=== PATIENT | male | born 1960 | race Caucasian/White ===

== ENCOUNTER → 2016-04-02 | Outpatient (CLI) | payer OTHER ==
[~2016-04-02] MED LIST: AMLO10TA2 PO; ASPI81TA28 PO; HYDR25TA4 PO; LISI-461 PO; OFLO0.3S PO
[2016-04-02 12:04] LABS: BLOOD UREA NITROGEN 13 mg/dl (7-18); BUN/CREATININE RATIO 15.4 (10-20); CALCIUM 9.7 mg/dl (8.5-10.1); CARBON DIOXIDE 29 mmol/L (21-32); CHLORIDE 96 mmol/L (98-107); CHOLESTEROL 160 mg/dl (0-200); CHOLESTEROL/HDL RATIO 3.7; CREATININE 0.84 mg/dl (0.60-1.40); GLUCOSE 80 mg/dl (70-99); HDL CHOLESTEROL 43 mg/dl; LDL CHOLESTEROL CALCULATED 97 mg/dl; POTASSIUM 4.2 mmol/L (3.5-5.1); SODIUM 134 mmol/L (136-145); TRIGLYCERIDES 98 mg/dl (0-150); VERY LOW DENSITY LIPOPROT CALC 20 mg/dl
[2016-04-03 10:34] LABS: C-REACTIVE PROT HIGHSEN 6.9 MG/L
== END | disposition home or self-care (01) ==
LOC: C.LAB 10:08
DX: E78.5 Hyperlipidemia, unspecified (principal); R97.20 Elevated prostate specific antigen [PSA]

== ENCOUNTER → 2016-10-21 | Outpatient (CLI) | payer OTHER ==
[~2016-10-21] MED LIST changes: +GLUC10007 PO; +LISI40TA PO; +MULT-506 PO; +SPIR25TA PO
[2016-10-21 15:32] LABS: BLOOD UREA NITROGEN 14 mg/dl (7-18); BUN/CREATININE RATIO 17.2 (10-20); CALCIUM 9.7 mg/dl (8.5-10.1); CARBON DIOXIDE 29 mmol/L (21-32); CHLORIDE 99 mmol/L (98-107); CREATININE 0.79 mg/dl (0.60-1.40); GLUCOSE 69 mg/dl (70-99); POTASSIUM 3.9 mmol/L (3.5-5.1); SODIUM 134 mmol/L (136-145)
[2016-10-21 15:35] LABS: CHOLESTEROL 179 mg/dl (0-200); CHOLESTEROL/HDL RATIO 4.4; HDL CHOLESTEROL 41 mg/dl; LDL CHOLESTEROL CALCULATED 110 mg/dl; TRIGLYCERIDES 139 mg/dl (0-150); VERY LOW DENSITY LIPOPROT CALC 28 mg/dl
[2016-10-23 10:21] LABS: C-REACTIVE PROT HIGHSEN 16.4 MG/L
== END | disposition home or self-care (01) ==
LOC: C.LAB 13:49
DX: E78.5 Hyperlipidemia, unspecified (principal); I10 Essential (primary) hypertension

== ENCOUNTER → 2016-11-24 | Outpatient (CLI) | payer OTHER ==
[~2016-11-24] MED LIST changes: -AMLO10TA2 PO; +GADAVIST IV PRN; -LISI-461 PO; -OFLO0.3S PO
--- NOTE | 2016-11-24 23:59 | DIAGNOSTIC IMAGING REPORT ---
PELVIC COMBO HISTORY: 56 years-old Male C61 recent diagnosis of prostate cancer. Patient presents with right-sided pelvic pain for a couple of years. No known injury. Bone scan and CT abdomen and pelvis were obtained at outside institution. Focal area of radiotracer uptake within the right sacroiliac region was described as suspicious. Sclerotic lesions of the ileum and sacrum on the right or noted on comparison CT. COMPARISON: CT abdomen and pelvis 11/07/2016, bone scan 11/04/2016 TECHNIQUE: Multiplanar multisequence MRI of the pelvis was obtained both with and without the use of 8.5 mL Gadavist. FINDINGS: Large [id number] branch library clerk localizer images demonstrate no acute abnormality within the abdomen, pelvis or paraspinal tissues. There is a peripherally sclerotic 9 x 10 x 10 mm ovoid circumscribed lesion of the posterior right acetabulum with extensive surrounding enhancing bone marrow edema extending into the right ischium as seen on image 38 of series 5, image 23 of series 10. This correlates with a peripherally sclerotic lucent lesion within this distribution seen on CT study 11/07/2016. No pathologic fracture is identified. Mild degenerative changes involve the bilateral femoral acetabular joints. Subcortical cystic changes are seen within the anterior aspect of the right femoral head neck junction. No large joint effusion or definite labral tear identified. Mild edema is noted about the bilateral greater trochanter gluteal tendon insertion sites suggesting enthesitis without evidence to suggest focal bursitis. No intramuscular edema. The previously questioned suspicious lesions adjacent to the right sacroiliac joint are not appreciated, favoring degenerative changes. No focal bone marrow edema or enhancement is seen within this distribution. 1.8 cm bone island of the left mid sacrum is present. No acute intrapelvic or soft tissue abnormality identified. The prostate appears heterogeneous. IMPRESSION: 1. Peripherally sclerotic 9 x 10 x 10 mm ovoid circumscribed lesion of the posterior right acetabulum with extensive surrounding enhancing bone marrow edema extending into the right ischium is noted as above correlating with a peripherally sclerotic lucent lesion on comparison CT study 11/07/2016. This is nonspecific and warrants a follow-up study in 3 months to exclude progressive abnormality. 2. No additional suspicious lesions are identified within the pelvis. The previously described sclerotic foci adjacent to the right sacroiliac joint are favored to reflect degenerative changes without focal bone marrow edema or abnormal enhancement seen within this distribution. 3. 1.8 cm bone island of the left mid sacrum. The above report was generated using voice recognition software. It may contain grammatical, syntax or spelling errors. Electronically signed by: Alexis Schaffer M.D. 11/24/2016 11:58 PM Dictated Date/Time: 11/24/2016 11:40 PM
== END | disposition home or self-care (01) ==
LOC: C.MRI 19:40
PROVIDERS: ATTEND Urology
DX: C61 Malignant neoplasm of prostate (principal)

== ENCOUNTER → 2016-12-25 | Outpatient (CLI) | payer BC, OTHER ==
[2013-09-20 04:17] VITALS: BMI 25.0
[~2016-12-25] MED LIST changes: -GADAVIST IV PRN; +TRAMTAB5 PO
[2016-12-25 15:17] VITALS: BMI 27.0
--- NOTE | 2016-12-25 15:48 | PAT Medication Instructions ---
Service Date Dec 25, 2016. Current Home Medication List Aspirin (Aspirin Ec), 81 MG PO QAM Glucosamine Sulfate (Glucosamine), 2,000 MG PO QAM Hydrochlorothiazide (Hctz), 25 MG PO QAM Lisinopril (Zestril), 40 MG PO QPM Multivitamin (Multivitamin), 1 TAB PO QPM Spironolactone (Aldactone), 25 MG PO BID Medication Instructions For Your Scheduled Surgery - Hold the following medications 2 weeks prior to surgery: Glucosamine Sulfate (Glucosamine), 2,000 MG PO QAM - Hold the following medications 10 days prior to surgery: Aspirin (Aspirin Ec), 81 MG PO QAM - Take the following medications as scheduled the night before surgery: Spironolactone (Aldactone), 25 MG PO BID Multivitamin (Multivitamin), 1 TAB PO QPM - Do Not take the following medications the night before surgery: Lisinopril (Zestril), 40 MG PO QPM - Hold the following medications the morning of surgery: Hydrochlorothiazide (Hctz), 25 MG PO QAM Spironolactone (Aldactone), 25 MG PO BID If you have any questions please call us at [phone] or [phone] or [phone]
[2016-12-25 16:24] LABS: BASO % 0.2 %; BASO ABS # 0.02 K/uL (0-0.2); COMPLETE YES; EOS % 1.6 %; HEMATOCRIT 42.7 % (42-52); IG% 0.3 %; LYMPH % 18.4 %; LYMPH ABS # 1.91 K/uL (1.2-3.4); MEAN CELL VOLUME 85.4 fL (80-100); MEAN PLATELET VOLUME 9.8 fL (7.4-10.4); MONO % 8.6 %; NEUT % 70.9 %; PLATELET COUNT 323 K/uL (130-400)
[2016-12-25 16:27] LABS: URINE APPEARANCE CLEAR (CLEAR); URINE BILIRUBIN NEG (NEG); URINE COLOR YELLOW; URINE NITRITE NEG (NEG); URINE SPECIFIC GRAVITY 1.026 (1.000-1.030); UROBILINOGEN NEG (NEG)
[2016-12-25 16:31] LABS: BUN/CREATININE RATIO 25.4 (10-20); CALCIUM 8.9 mg/dl (8.5-10.1); CREATININE 0.84 mg/dl (0.60-1.40); POTASSIUM 3.8 mmol/L (3.5-5.1)
[2016-12-25 16:33] LABS: MANUAL MICROSCOPIC REQUIRED? NO; REVIEW REQ? NO
--- NOTE | 2016-12-25 16:36 | DIAGNOSTIC IMAGING REPORT ---
CHEST PREADMISSION(PA/LAT) HISTORY: Preop. COMPARISON: None. FINDINGS: The lungs are clear. Cardiac silhouette is normal in size. No pleural effusions. No pneumothorax. IMPRESSION: No acute process. Electronically signed by: Joe Coleman M.D. 12/25/2016 4:34 PM Dictated Date/Time: 12/25/2016 4:33 PM
== END | disposition home or self-care (01) ==
LOC: C.LAB 08:00 → EDSTATUS 01-15 08:27
PROVIDERS: ATTEND Urology
DX: Z01.812 Encounter for preprocedural laboratory examination (principal); Z01.810 Encounter for preprocedural cardiovascular examination

== ENCOUNTER 2017-01-26 05:40 | Day surgery (SDC) | payer BC, OTHER ==
[2016-12-25 15:17] VITALS: BMI 27.0
[~2017-01-26] VITALS: Ht 180.3 cm; Wt 87.6 kg
[~2017-01-26 05:40] MED LIST changes: -TRAMTAB5 PO
[2017-01-26] MEDS ORDERED: CIPROFLOXACIN / D5W 400 MG IV SCH (06:00)
[2017-01-26] MEDS ORDERED: LACTATED RINGER'S 1000ML 1,000 ML IV SCH (06:00)
[2017-01-26 06:16] VITALS: BP 169/81; PULSE 76; TEMP 36.7; O2SAT 97; Ht 180.3 cm; Wt 87.6 kg
[2017-01-26] MEDS ORDERED: MIDAZOLAM HCL 1 MG/ML 2ML VIAL ONE (06:53)
[2017-01-26] MEDS ORDERED: FENTANYL CITRATE INJ 50 MCG/1 ML 2 ML VIAL ONE ×2 (06:53→06:54)
[2017-01-26] MEDS ORDERED: PROPOFOL IV EMULSION 10 MG/ML 20 ML VIAL IV ONE (06:53)
[2017-01-26] MEDS ORDERED: LIDOCAINE HCL 2% 2 ML VIAL (20MG/ML) ONE (06:53)
--- NOTE | 2017-01-26 06:57 | History & Physical Bridge Note ---
H&P Re-Evaluation Bridge Note: I have examined the patient, reviewed the History & Physical and in the interval since the performance of the History & Physical I have noted the following changes of clinical significance: No changes noted
[2017-01-26] MEDS ORDERED: ONDANSETRON INJ 2 MG/ML 2 ML VIAL IV PRN (07:00)
[2017-01-26] MEDS ORDERED: ATROPINE SULFATE 0.1 MG/ML 5ML SYR IV PRN (07:00)
[2017-01-26] MEDS ORDERED: EpHEDrine SULFATE INJ 50 MG/ML AMP IV PRN (07:00)
[2017-01-26] MEDS ORDERED: HYDROmorphone INJ 1 MG/ML SYR IV PRN (07:00)
[2017-01-26] MEDS ORDERED: FENTANYL CITRATE INJ 50 MCG/1 ML 2 ML VIAL IV PRN (07:00)
[2017-01-26] MEDS ORDERED: NEOMYCIN/POLYMYX/BACITR OINT 15 GM TUBE ONE (07:10)
[2017-01-26] MEDS ORDERED: CONRAY 60% 50 ML VIAL ONE (07:10)
[2017-01-26] MEDS ORDERED: DEXAMETHASONE SOD INJ 4 MG/ML VIAL ONE (08:39)
[2017-01-26] MEDS ORDERED: ROCURONIUM BROMIDE 10 MG/ML 5 ML VIAL IV ONE (08:39)
[2017-01-26] MEDS ORDERED: ONDANSETRON INJ 2 MG/ML 2 ML VIAL ONE (08:39)
[2017-01-26] MEDS ORDERED: GLYCOPYRROLATE INJ 0.2 MG/ML VIAL ONE (09:05)
[2017-01-26] MEDS ORDERED: NEOSTIGMINE METHYLSULFATE 5 MG/5 ML SYR ONE (09:05)
[2017-01-26] MEDS ORDERED: TRAMTAB5 PO (09:21)
--- NOTE | 2017-01-26 09:23 | Discharge Instructions ---
Discharge Instructions Date of Service Jan 26, 2017. Visit Reason for Visit: Prostate Cancer Discharge Discharge Diagnosis / Problem: Prostate cancer Discharge Goals Goal(s): Therapeutic intervention Activity Recommendations Activity Limitations: resume your previous activity (take it easy today see radiation saftey sheet you got in radiation oncology) Lifting Limitations: gradually increase as tolerated Exercise/Sports Limitations: rest today May Resume Sexual Activity: after two weeks Shower/Bathe: no limitations Driving or Machine Use: resume 1 day after discharge Anesthesia . Post Anesthesia Instructions: If you have had General Anesthesia or IV Sedation: * Do not drive today. * Resume driving when surgeon permits. * Do not make important decisions or sign legal documents today. * Call surgeon for: 1. Temperature elevations greater than 101 degrees F. 2. Uncontrollable pain. 3. Excessive bleeding. 4. Persistent nausea and vomiting. 5. Medication intolerance (nausea, vomiting or rash). * For nausea and vomiting use only clear liquids such as: tea, soda, bouillon until nausea subsides, then gradually increase diet as tolerated. * If you have any concerns or questions, call your surgeon's office. If physician is unavailable and it is an emergency, call 911 or go to the nearest emergency room. . Diet Recommendations Recommended Home Diet: resume previous diet Procedures Procedures Performed: Brachy Therapy Volume and Guide Pending Studies Studies pending at discharge: no Medical Emergencies . Who to Call and When: Medical Emergencies: If at any time you feel your situation is an emergency, please call 911 immediately. . Non-Emergent Contact Non-Emergency issues call your: Urologist Call Non-Emergent contact if: temperature is above 101.5, your pain is not controlled . . "Provider Documentation" section prepared by Sal Cruz. . [place] Drug Monitoring Program Search Results: patient reviewed within database
[2017-01-26] MEDS ORDERED: TRAMADOL/ACETAMINOPHEN 37.5/325MG TAB PO PRN (09:30)
--- NOTE | 2017-01-26 09:37 | [facility] Post Operative Brief Note ---
Immediate Operative Summary Operative Date Jan 26, 2017. Pre-Operative Diagnosis Prostate Cancer Post-Operative Diagnosis Prostate Cancer Procedure(s) Performed Brachy Therapy Volume and Guide Surgeon Dr. Cruz Flux Tube Attendant Surgeon(s) Dr. Thompson Estimated Blood Loss 1 cc Findings small prostate Specimens none per surgeon Drains ugalde Anesthesia general Complication(s) None Disposition Recovery Room / PACU
--- NOTE | 2017-01-26 09:50 | Anesthesiology Progress Note ---
Anesthesia Post Op Note Date & Time Jan 26, 2017 at 09:50 Vital Signs Pain Intensity: 0 Vital Signs Past 12 Hours Date Time Temp Pulse Resp B/P (MAP) Pulse Ox O2 Delivery O2 Flow Rate FiO2 01/26/17 09:45 36.6 66 16 157/90 98 Room Air 01/26/17 09:35 66 16 163/91 100 Oxymask 10 01/26/17 09:25 66 16 154/85 100 Oxymask 10 01/26/17 09:18 36 66 16 155/83 100 Oxymask 10 01/26/17 06:16 36.7 76 16 169/81 (110) 97 Room Air Notes Mental Status: alert / awake / arousable, participated in evaluation Pt Amnestic to Procedure: Yes Nausea / Vomiting: adequately controlled Pain: adequately controlled Airway Patency, RR, SpO2: stable & adequate BP & HR: stable & adequate Hydration State: stable & adequate Anesthetic Complications: no major complications apparent
--- NOTE | 2017-01-26 09:54 | DIAGNOSTIC IMAGING REPORT ---
INTRAOPERATIVE AP PELVIS 2 VIEWS CLINICAL HISTORY: Prostate carcinoma. Brachytherapy seed placement. COMPARISON STUDY: No previous studies for comparison. FINDINGS: 2 intraoperative fluoroscopic spot images are provided for interpretation. There is contrast within the bladder. There is a Ayala catheter in place. The images demonstrate placement of multiple prostate brachytherapy seeds. 2 fluoroscopic spot images were provided for interpretation. 4 seconds of fluoroscopic time was utilized. IMPRESSION: Intraoperative fluoroscopic spot images during placement of prostate brachytherapy seeds. Electronically signed by: Ankush Echols M.D. 01/26/2017 9:52 AM Dictated Date/Time: 01/26/2017 9:51 AM
[2017-01-26 10:00] VITALS: BP 153/84; PULSE 68; TEMP 36.6; O2SAT 98
[2017-01-26 10:30] VITALS: BP 151/88; PULSE 64; TEMP 36.5; O2SAT 98
[2017-01-26 11:00] VITALS: BP 145/88; PULSE 65; TEMP 36.5; O2SAT 98
--- NOTE | 2017-01-27 12:27 | OPERATIVE REPORT ---
DATE OF OPERATION: 01/26/2017 PREOPERATIVE DIAGNOSIS: PSA 3.32, biopsy stage T2b, [place] 4+4 adenocarcinoma of the prostate. POSTOPERATIVE DIAGNOSIS: PSA 3.32, biopsy stage T2b, [place] 4+4 adenocarcinoma of the prostate. PROCEDURE: Transperineal prostate brachytherapy with live dosimetry. FINDINGS: A 22.7 mL gland. SURGEON: Dr. Cruz. PHYSICIST: Issac Chopra. RADIATION ONCOLOGIST: Dr. Daniels. ANESTHESIA: General. DRAINS: Temporary Ayala catheter in the bladder. COMPLICATIONS: None. SPECIMENS: None. INDICATIONS: The patient has been diagnosed with an adenocarcinoma of the prostate and has elected to undergo transperineal brachytherapy as part of his treatment and is being brought in now for the procedure. OPERATION AND FINDINGS: The patient was correctly identified and brought to the outpatient surgery suite. After the induction of an adequate level of anesthesia, the patient was placed in the dorsal lithotomy position. The patient's lower abdomen, genitalia, and perineum were then prepped with Hibiclens. A Ayala catheter was then inserted per the urethra into the bladder using usual sterile technique and the urine was drained and then 100 mL of mixture of saline and iodinated contrast material was instilled through the Ayala into the bladder. Aerated gel was then placed within the lumen of the catheter, and the catheter was then plugged. The patient's scrotum was then taped upward using a Steri-Drape to keep it out of the way of the perineum. A transrectal ultrasound probe was then gently inserted into the patient's rectum and attached to the brachytherapy sled, and adjustments were made to the brachytherapy sled using the template projected on the ultrasound screen to get the transrectal probe and the image of the prostate into the proper position. After getting the probe adjusted properly, the prostate was scanned from its base to its apex with the images being transmitted to the treatment planning computer. While the radiation oncologist and physicist were performing a live implant plan, empty needles were placed through the template and positioned in the prostate around the entire periphery of the prostate. Each needle was spaced approximately 1 cm apart from its neighbor and again this was done circumferentially around the prostate. At this point, Dr. Daniels used a RYAN applicator to place the seeds into the prostate through these peripherally placed needles with the number and position of the seeds based on the plan that had just been created. This was done live so live dosimetry was being calculated with each seed placement. After the peripheral seeds were placed and all the peripheral needles removed, the radiation oncologist and physicist then planned for the central needles and these needles were placed in their proper positions based on the plan. After completing this portion, again the case was turned over to Dr. Daniels for placement of the central seeds. A total number of 17 needles were used to implant 44 CS 131 seeds. After completing the implant, a fluoroscopic image was taken to check to make sure that there were no seeds placed within the bladder and a final picture was taken of this. One final inspection was then done looking at the plan and the seed implant and after completion of this final inspection the transrectal probe was removed. The patient's bladder was drained through the Ayala catheter. A Kirill counter was used to check for any radioactivity remaining in the needles and in the urine. The Ayala catheter was then left indwelling. The patient's perineum was then washed and dried, and an antibiotic ointment was applied. The patient tolerated the procedure well and was transferred to the Recovery Room in stable condition. I attest to the content of the Intraoperative Record and any orders documented therein. Any exception s are noted below.
== END 2017-01-26 11:05 | disposition home or self-care (01) ==
LOC: C.ACU 05:40
PROVIDERS: ATTEND Urology
DX: C61 Malignant neoplasm of prostate (principal); K21.9 Gastro-esophageal reflux disease without esophagitis; I10 Essential (primary) hypertension; Z90.89 Acquired absence of other organs; Z82.49 Family history of ischemic heart disease and other diseases of the circulatory system; Z83.3 Family history of diabetes mellitus; Z80.6 Family history of leukemia; Z79.82 Long term (current) use of aspirin; E78.00 Pure hypercholesterolemia, unspecified; M19.90 Unspecified osteoarthritis, unspecified site

== ENCOUNTER → 2017-01-28 | Outpatient (CLI) | payer BC ==
[~2017-01-28] MED LIST changes: +ALFU10TA2 PO; +IBUP-1459 PO; +LEUPROLIDE ACETATE 22.5 MG KIT IM SCH; +TRAMTAB5 PO
== END | disposition home or self-care (01) ==
LOC: C.ONC 14:20
PROVIDERS: ATTEND Physician Assistant Medical
DX: Z51.0 Encounter for antineoplastic radiation therapy (principal); C61 Malignant neoplasm of prostate

== ENCOUNTER → 2017-02-21 | Outpatient (CLI) | payer BC ==
[~2017-02-21] MED LIST changes: -ALFU10TA2 PO; -IBUP-1459 PO; -LEUPROLIDE ACETATE 22.5 MG KIT IM SCH; -TRAMTAB5 PO
[2017-02-21 08:42] LABS: ALT/SGPT 44 U/L (12-78); AST/SGOT 27 U/L (15-37); BLOOD UREA NITROGEN 19 mg/dl (7-18); CALCIUM 9.6 mg/dl (8.5-10.1); CARBON DIOXIDE 29 mmol/L (21-32); CHOLESTEROL 171 mg/dl (0-200); CREATININE 0.87 mg/dl (0.60-1.40); GLUCOSE 87 mg/dl (70-99); POTASSIUM 4.3 mmol/L (3.5-5.1); SODIUM 136 mmol/L (136-145)
[2017-02-21 08:45] LABS: LDL CHOLESTEROL CALCULATED 99 mg/dl
== END | disposition home or self-care (01) ==
LOC: C.LAB 07:41
DX: E78.5 Hyperlipidemia, unspecified (principal); I10 Essential (primary) hypertension

== ENCOUNTER → 2017-05-07 | Outpatient (CLI) | payer BC ==
[~2017-05-07] MED LIST changes: +ALFU10TA2 PO; +CALC600T37 PO; +CHOL1000 PO; -GLUC10007 PO; +IBUP-1459 PO
[2017-05-07 13:17] VITALS: BP 108/72; PULSE 76; TEMP 37.3; O2SAT 96
--- NOTE | 2017-05-07 15:20 | Radiation Oncology Follow-Up ---
Radiation Oncology Follow-Up Date of Visit May 07, 2017. Reason For Visit one month follow up and cancer survivorship care plan Radiation Completion Date seed implant on 01-26-2017 and finished external beam on 04-10-2017 Diagnosis (1) Prostate cancer Status: Acute Onset Date: 10/27/2016 Location: left lobe of the prostate Histology Subtype: adenocarcinoma Stage: ll Permanent Comment: Elevated PSA at 3.32 Status post ultrasound-guided biopsy October 27 2016 Adenocarcinoma [place] 4+3 and 4+4 Prostate volume 30.5 Prostate density 0.11 Hormonal suppression Lupron 22.5 mg IM November 28, 2016 Prostate seed implant January 26, 2017. 44 seeds were placed. Received 8500 cGy Lupron 22.5 mg IM February 26, 2017 Status post external beam therapy completed April 10, 2017 received 4500 cGy utilizing volumetric modulated arc therapy. Last Edited By: Carrol Rachel on May 07, 2017 14:31 History of Present Illness is without a family history of prostate cancer. He is been followed with screening prostatespecific antigens with his first documented prostate-specific antigen from January 162001 at 0.92. On 04/11/2003 prostate-specific antigen was 0.95. On 05/31/2007 prostate-specific antigen was 1.14. On 10/05/2008 prostate-specific antigen was 1.38. On 12/07/2009 prostate-specific antigen was 1.70. On 2015 prostate-specific antigen was 2.6 to and on 04/02/2016 the prostate-specific antigen was 3.15. Patient was therefore seen by his family physician Dr. Sebastian who performed a digital rectal exam and thought he felt some abnormalities. The patient was therefore sent for evaluation to Dr. Amelia Em. The patient was seen on 05/29/2016. Her rectal exam showed a approximate 40 g prostate that was symmetrical without nodules or induration or tenderness. She felt the prostate-specific antigen was slightly high for age-adjusted value and discussed immediate biopsy or possible repeat prostate- specific antigen in 6 months. The patient wished to wait and repeat his prostate-specific antigen. His prostate-specific antigen was repeated on 09/20/2016 and was 3.32 which was abnormal placed on the patient's age. With the continued rise in prostate-specific antigen she discussed ultrasound- guided biopsies with the patient who agreed. Therefore on 10/27/2016 the patient underwent ultrasound-guided biopsies. 12 biopsies were taken. The biopsy from the left lateral base with 2 cores taken was positive for adenocarcinoma Christy grade 4+3 involving 90% of the core tissue sample. 2 biopsies in the left lateral mid gland were also positive for adenocarcinoma Christy grade 4+4 involving 40% of one of 2 core tissue sample. No perineural invasion was identified. Therefore total of 3 cores were positive out of a total of 14 reported. Accession #: [id number]. Dr. Em ordered a bone scan performed on November 04 which showed multiple equivocal foci of abnormal radiotracer uptake. They recommended further characterization of the changes by a CT scan of the abdomen and pelvis and a CT scan of the head. On November [address] scan of the abdomen and pelvis which showed a sclerotic lesion in the sacrum on the left side likely bone island. Sclerotic foci in the ilium and sacrum adjacent to the right SI joint were indeterminate and focal uptake seen in the right sacroiliac region on the bone scan no lymphadenopathy or involvement of solid abdominal organs were was appreciated. Patient is undergoing a CT of the head today and toward the end of the month and MRI of the pelvis. We were asked to see the patient to discuss the role of radiation as treatment option for his prostate cancer. He ultimately made the decision to undergo hormone suppression followed by a prostate seed implant and then external beam therapy. Interim History He completed an AUA score sheet and gave a score of 16. At the end of treatment he had a score of 15. He continues on Uroxatral. He is also taking ibuprofen 400 mg twice daily. He does have some intermittent burning. He had stopped taking the Azo. His next Lupron injection is scheduled for May 27. He continues to have some issues with frequent loose bowel movements. He is taking Metamucil twice daily. This is unrelated to food intake. He has an upper respiratory infection. He has been coughing. No issues with shortness of breath. He has mild sore throat. He has had no fever or chills. Allergies Coded Allergies: Amlodipine (Verified Adverse Reaction, Unknown, GUM SWELLING, 01/26/17) Home Medications Scheduled Alfuzosin Hcl (Uroxatral), 10 MG PO PM Aspirin (Aspirin Ec), 81 MG PO QAM Calcium (Calcium), 600 MG PO DAILY Cholecalciferol (Vitamin D3), 1 TAB PO DAILY Hydrochlorothiazide (Hctz), 25 MG PO QAM Ibuprofen (Motrin), 400 MG PO BID Lisinopril (Zestril), 40 MG PO QPM Multivitamin (Multivitamin), 1 TAB PO QPM Spironolactone (Aldactone), 25 MG PO BID Review of Systems Gastrointestinal: Symptoms: Diarrhea GI Comments: 2-3-5 times a day, getting better Oral: Symptoms: No Problems Respiratory: Symptoms: Dry Cough Respiratory Comments: "slight chest pain with this cold " Other Respiratory: " I have a bad cold " Urinary: Symptoms: Nocturia Comments: nocturia 5 -6 , rare burning , occ urgency Skin: Symptoms: No Problems Physical Exam Vital Signs Date Time Temp Pulse Resp B/P (MAP) Pulse Ox O2 Delivery O2 Flow Rate FiO2 05/07/17 13:17 37.3 76 16 108/72 96 Fatigue: None General Appearance: no apparent distress Eyes: normal inspection, EOMI ENT: normal ENT inspection, hearing grossly normal Respiratory/Chest: lungs clear, no respiratory distress, no accessory muscle use Cardiovascular: regular rate, rhythm, no gallop, no murmur Abdomen: non tender, soft, no organomegaly Skin: warm/dry Lymphatic: no adenopathy Pain Management Patient Reports Pain: No Side: Bilateral Patient Preferred Pain Scale: 0 - 10 Initial Pain Intensity: 0.0 Pain Management Plan He has some discomfort with urination he did not give a pain level. Laboratory Laboratory Results: pending Pathology Pathology Results: were reviewed, and pertinent findings noted in HPI Imaging Imaging Studies: were reviewed, and pertinent findings noted in HPI Assessment & Plan Plan: He will continue use of the ibuprofen though when his symptoms improve he should steadily wean off. He is going to restart Azo and take this more on a regular basis to help with discomfort this will also hopefully help with his other urinary symptoms. He continues on Uroxatral. He may use Imodium as needed for the loose bowel movements. We discussed that symptoms should steadily improve the further away we get from the completion of treatment. He will continue regular follow-up with his primary care physician. I have asked him to make an appointment with urology in 3 months. He has a resolving upper respiratory infection. Today he was given a cancer survivorship care plan. He was also given a survivorship booklet. PSA was drawn. He is going to call tomorrow afternoon for the test results. We asked him to return to our office in 6 months. He may call if he has any questions or concerns in the interim. Total Time In Follow-Up I spent 20 minutes speaking to the patient in performing examination. I spent 20 minutes reviewing information, preparing the survivorship document, and completing this note. Copy To Hipolito Sebastian Jr,D.O.; Sal Cruz MD; Amelia Em MD
== END | disposition home or self-care (01) ==
LOC: C.ONC 13:12
PROVIDERS: ATTEND Physician Assistant Medical
DX: Z08 Encounter for follow-up examination after completed treatment for malignant neoplasm (principal); Z92.3 Personal history of irradiation; Z85.46 Personal history of malignant neoplasm of prostate

== ENCOUNTER → 2017-05-27 | Outpatient (CLI) | payer BC ==
--- NOTE | 2017-04-20 10:49 | Radiation Onc End of Treatmnt ---
End of Treatment Documentation Date Apr 20, 2017. Diagnosis (1) Prostate cancer Onset Date: 10/27/2016 Stage: ll (Biopsy stage) Permanent Comment: Elevated PSA at 3.32 Status post ultrasound-guided biopsy October 27 2016 Adenocarcinoma [place] 4+3 and 4+4 Prostate volume 30.5 Prostate density 0.11 Hormonal suppression Lupron 22.5 mg IM November 28, 2016 Prostate seed implant January 26, 2018. 44 seeds were placed. Received 8500 cGy Lupron 22.5 mg IM February 26, 2017 Status post external beam therapy completed April 10, 2017 received 4500 cGy utilizing volumetric modulated arc therapy. Last Edited By: Carrol Rachel on Apr 20, 2017 10:18 History is without a family history of prostate cancer. He is been followed with screening prostatespecific antigens with his first documented prostate-specific antigen from January 162001 at 0.92. On 04/11/2003 prostate-specific antigen was 0.95. On 05/31/2007 prostate-specific antigen was 1.14. On 10/05/2008 prostate-specific antigen was 1.38. On 12/07/2009 prostate-specific antigen was 1.70. On 2015 prostate-specific antigen was 2.6 to and on 04/02/2016 the prostate-specific antigen was 3.15. Patient was therefore seen by his family physician Dr. Sebastian who performed a digital rectal exam and thought he felt some abnormalities. The patient was therefore sent for evaluation to Dr. Amelia Em. The patient was seen on 05/29/2016. Her rectal exam showed a approximate 40 g prostate that was symmetrical without nodules or induration or tenderness. She felt the prostate-specific antigen was slightly high for age-adjusted value and discussed immediate biopsy or possible repeat prostate- specific antigen in 6 months. The patient wished to wait and repeat his prostate-specific antigen. His prostate-specific antigen was repeated on 09/20/2016 and was 3.32 which was abnormal placed on the patient's age. With the continued rise in prostate-specific antigen she discussed ultrasound- guided biopsies with the patient who agreed. Therefore on 10/27/2016 the patient underwent ultrasound-guided biopsies. 12 biopsies were taken. The biopsy from the left lateral base with 2 cores taken was positive for adenocarcinoma [place] grade 4+3 involving 90% of the core tissue sample. 2 biopsies in the left lateral mid gland were also positive for adenocarcinoma [place] grade 4+4 involving 40% of one of 2 core tissue sample. No perineural invasion was identified. Therefore total of 3 cores were positive out of a total of 14 reported. Accession #: [id number]. Dr. Em ordered a bone scan performed on November 04 which showed multiple equivocal foci of abnormal radiotracer uptake. They recommended further characterization of the changes by a CT scan of the abdomen and pelvis and a CT scan of the head. On November [address] scan of the abdomen and pelvis which showed a sclerotic lesion in the sacrum on the left side likely bone island. Sclerotic foci in the ilium and sacrum adjacent to the right SI joint were indeterminate and focal uptake seen in the right sacroiliac region on the bone scan no lymphadenopathy or involvement of solid abdominal organs were was appreciated. Patient is undergoing a CT of the head today and toward the end of the month and MRI of the pelvis. We were asked to see the patient to discuss the role of radiation as treatment option for his prostate cancer. He ultimately made the decision to undergo hormone suppression followed by a prostate seed implant and then external beam therapy. Physics Procedure Monotherapy/ Boost Implant Date # of seeds Activity per seed Isotope Dose (cGy) Prostate seed implant Boost 01/26/2017 44 1.77 U Cs-131 8500 Course Treatment Site [employer] Start Date End Date Elapsed Days # [place] Daily Dose (cGy) Total Dose (cGy) C1- Pelvis VMAT, 3 arcs 6X 03/09/2017 04/10/2017 33 25 180 4500 Course Total Elapsed Days (Implant through external beam) 75 Do documented final doses agree with prescribed doses? Yes If not, explain: Is patients chart complete and accurate? Yes If not, explain: Systemic Therapy Chemotherapy not given He received hormone suppression. It is planned to continue for 12-18 months. Additional Notes He completed his course of radiation therapy. Treatment was given with hormone suppression. He then had a prostate seed implant January 26, 2018. This was followed by external beam therapy. At the initiation of external beam therapy he did have an high AUA score. This was found to be 20. He took ibuprofen 400 mg twice daily. The AUA score at the end of treatment was 15. He was also on Uroxatral. He will continue follow-up with his primary care provider and Dr. Cruz. We asked him to return to our office in 1 month. We will obtain a PSA at that time. He may call our office if he has any questions or concerns in the interim. Pain Management He denied pain before, during, and at the end of treatment. Copies To Hipolito Sebastian Jr,D.O.; Sal Cruz MD
--- NOTE | 2017-04-20 10:52 | Rad Onc Survivorship Care Plan ---
Treatment Summary Health Care Providers Primary Care Provider: Dr. Sebastian Surgeon: Dr. Cruz Radiation Oncologist: Dr. Luis Daniels Medical Oncologist: DREW Diagnosis (1) Prostate cancer Onset Date: 10/27/2016 Stage: ll (Biopsy stage) Permanent Comment: Elevated PSA at 3.32 Status post ultrasound-guided biopsy October 27 2016 Adenocarcinoma [place] 4+3 and 4+4 Prostate volume 30.5 Prostate density 0.11 Hormonal suppression Lupron 22.5 mg IM November 28, 2016 Prostate seed implant January 26, 2018. 44 seeds were placed. Received 8500 cGy Lupron 22.5 mg IM February 26, 2017 Status post external beam therapy completed April 10, 2017 received 4500 cGy utilizing volumetric modulated arc therapy. Last Edited By: Carrol Rachel on Apr 20, 2017 10:18 Radiation Treatment Radiation: Yes Body Area Treated: Prostate and pelvic nodes End Date (Year): 04/10/2017 Treatment: Procedure Monotherapy/ Boost Implant Date # of seeds Activity per seed Isotope Dose (cGy) Prostate seed implant Boost 01/26/2017 44 1.77 U Cs-131 8500 Course Treatment Site [employer] Start Date End Date Elapsed Days # [place] Daily Dose (cGy) Total Dose (cGy) C1- Pelvis VMAT, 3 arcs 6X 03/09/2017 04/10/2017 33 25 180 4500 Course Total Elapsed Days (Implant through external beam) 75 Do documented final doses agree with prescribed doses? Yes If not, explain: Is patients chart complete and accurate? Yes If not, explain: Familial Cancer Assessment Genetic/Hereditary Risk Factor: None Genetic Counseling: No Follow-Up Care Plan Ongoing Treatment Ongoing treatment needed: Yes Name / Duration / Side Effects Follow up guidelines per NCCN/ASCO/AUA/GUSTAVO guidelines and your oncologist and/ or urologist. You should have a PSA drawn every 6 months. Schedule of Clinicial Visits Coordinating Provider & When: Follow up with your radiation oncologist, urologist, and primary care provider. Cancer Surveillance Provider/What/When/How Often: You will follow up with our office in 6 months and then yearly. You should be seen by one physician regarding your prostate cancer every 6 months. General Health Care Please continue to see your primary care provider for all general health care recommended for a person your age, including cancer screening tests. Any symptoms should be brought to the attention of your provider: 1. Anything that represents a brand new symptom; 2. Anything that represents a persistent symptom; 3. Anything you are worried about that might be related to the cancer coming back. Possible Effects Late and/or assisted effects: Following the completion of treatment, your acute side effects from radiation treatment should improve including urinary frequency, urgency, pain with urination, loose bowel movements and fatigue. Late side effects include, but are not limited to, radiation proctitis, radiation cystitis, urinary frequency/urgency, decreased urinary flow, erectile dysfunction, loose bowel movements, femoral neck fracture, bowel obstruction and abdominal adhesions. You are also at risk of developing secondary cancer. Concerns Cancer survivors may experience issues with the areas listed below. If you have any concerns in these or other areas, please speak with your doctors or nurses to find out how you can get help with them. Lifestyle / Behaviors A number of lifestyle / behaviors can affect your ongoing health, including the risk for the cancer coming back or developing another cancer. Discuss these recommendations with your doctor or nurse. : Diet Physical activity Prepared By Your Survivorship Care Plan was prepared by Carrol Rachel on 04/20/17. Additional Copies To Hipolito Sebastian Jr,D.O.; Sal Cruz MD
[~2017-05-27] MED LIST changes: +LEUPROLIDE ACETATE 22.5 MG KIT IM ONE
== END | disposition home or self-care (01) ==
LOC: C.ONC 13:19
PROVIDERS: ATTEND Physician Assistant Medical
DX: Z51.0 Encounter for antineoplastic radiation therapy (principal); C61 Malignant neoplasm of prostate

== ENCOUNTER → 2017-08-25 | Outpatient (CLI) | payer BC ==
[~2017-08-25] MED LIST changes: -LEUPROLIDE ACETATE 22.5 MG KIT IM ONE; +LEUPROLIDE ACETATE 22.5 MG KIT IM SCH
--- NOTE | 2017-09-11 09:24 | CODING QUERY NO DIAGNOSIS ---
: 1960 TREATMENT RENDERED WITHOUT A DIAGNOSIS To promote full compliance with coding requirements relating to patient care, physician participation is requested in all cases of family services worker uncertainty. Please assist us with providing a diagnosis/symptom for the test(s) below: A diagnosis/symptom was not documented on your Order. A valid diagnosis/symptom is required to bill all insurances. Please remember that we are unable to code a diagnosis of rule out, probable, possible, questionable, or suspected. Tests that require a diagnosis: DOS: 08/25/17 Chemo injection DIAGNOSIS: Provider Signature: Date: Thank you [facility] Information Management Once completed, please kindly fax back to [phone] For questions please call [phone]
== END | disposition home or self-care (01) ==
LOC: C.ONC 13:22
PROVIDERS: ATTEND Physician Assistant Medical
DX: Z51.0 Encounter for antineoplastic radiation therapy (principal); C61 Malignant neoplasm of prostate